=== PATIENT | male | born 1950 ===

== ENCOUNTER 2021-01-11 08:48 | Outpatient (REF) | payer OTHER, SELFPAY ==
--- NOTE | ~2021-01-11 | US_ITS ---
EXAMINATION: US RETROPERITONEAL LIMITED (AORTA) CLINICAL INFORMATION: Abdominal aorta aneurysm followup, without rupture. COMPARISON: Abdominal aorta ultrasound dated 01/20/2019 and 01/20/2018. TECHNIQUE: Grayscale, color Doppler and spectral Doppler evaluation of the abdominal aorta. FINDINGS: The aorta is normal. The measurements of the aorta in maximum AP and transverse dimensions respectively are as follows: PROXIMAL: 3.1 x 3.1 cm. MID: 2.3 x 2.4 cm. DISTAL: 5.4 x 5.3 cm. This is increased from 3.5 cm on January 2019 exam. It is difficult to define the posterior wall of the aneurysm particularly on transverse images and measurements accuracy is questioned. There is significant intraluminal thrombus which appears new. PSV: 97 The measurements of the common iliac arteries in maximum AP dimension are as follows: RIGHT COMMON ILIAC ARTERY: 1.2 cm. LEFT COMMON ILIAC ARTERY: 1.4 cm. US/US abdominal aortic aneurysm IMPRESSION: Distal abdominal aortic aneurysm increased in size from previous exam. It is difficult to define the posterior wall of the aneurysm and measurement accuracy is question. Aneurysm measures 5.4 x 5.3 cm in AP and transverse dimension compared to 3.5 x 3.5 cm on January 2019 exam. Findings will be communicated by the [employer] work flow painter apprentice Amanda Kim.
== END 2021-01-11 08:49 | disposition home or self-care (01) ==
LOC: HO.US 08:48
PROVIDERS: Visit Provider Surgery Vascular Surgery
DX: I71.4 Abdominal aortic aneurysm, without rupture (principal)
CPT/HCPCS: 76706

== ENCOUNTER → 2021-01-16 09:34 | Outpatient (BNVA) | payer OTHER, SELFPAY | PROVIDERS: PCP Internal Medicine; Visit Provider Surgery Vascular Surgery ==

== ENCOUNTER 2021-01-29 07:49 | Outpatient (REF) | payer OTHER, SELFPAY ==
--- NOTE | ~2021-01-29 | CT_ITS ---
EXAMINATION: CT ANGIOGRAM ABDOMEN AND PELVIS CLINICAL INFORMATION: This is a 70-year-old male with an abdominal aortic aneurysm. COMPARISON: Comparison is made to an ultrasound of the abdominal aorta which measures the abdominal aortic aneurysm measured 5.4 x 5.3 cm on 01/11/2021. TECHNIQUE: Multiple axial images were obtained through the abdomen and pelvis following the administration of 80 mL of Omnipaque 350 intravenous contrast. Images were reviewed on a dedicated 3-D workstation. This CT examination was performed using dose optimization techniques as appropriate, variously including the following: *Automated exposure control *Adjustment of mA and/or kV according to patient size (this includes techniques or standardized protocols for targeted exams where dose is matched to indication/reason for exam; i.e. extremities or head) *Use of iterative reconstruction technique DLP: 551 mGy-cm FINDINGS: Vascular: 1. Aorta: There is minimal calcified and noncalcified atherosclerotic plaque in the infrarenal aorta which measures 2.2 x 2.5 cm. There is an infrarenal abdominal aortic aneurysm which measures 3.5 x 3.5 cm. The distal abdominal aorta measures 2.3 x 2.4 cm. 2. Mesenteric Arteries: The celiac axis, superior mesenteric artery and inferior mesenteric artery opacify normally with contrast. No evidence of high-grade significant stenosis, aneurysm, or dissection. 3. Renal Arteries: There are 2 left renal arteries. There is a single right renal artery. There is scattered atherosclerotic plaque with 30% narrowing within the renal arteries bilaterally. 4. Right Lower Extremity: The right common iliac artery measures 1.3 cm. 5. There is scattered calcified and noncalcified atherosclerotic disease throughout the iliac arteries without evidence of high-grade stenosis. 5. Left Lower Extremity: The left common iliac artery measures 1.5 cm. 5. There is scattered calcified and noncalcified atherosclerotic disease throughout the iliac arteries without evidence of high-grade stenosis. Placed Nonvascular: LUNG BASES: Mild cystic changes noted in the right lower lobe. This may represent mild emphysematous change. MEDIASTINUM: The heart is normal in size. No pericardial effusion. No mediastinal or hilar lymphadenopathy. Visualized thyroid appears normal. The esophagus is unremarkable. LIVER, GALLBLADDER, AND BILIARY TREE: There is a 1.6 cm low-density mass within segment 4 of the liver. There is a 0.6 cm low-density mass within segment 8 of the liver. There is a 1 cm low-density mass within segment 8 of the liver. This is high within the liver near the junction with the inferior vena cava. These lesions are indeterminate on CT criteria. I recommend ultrasound evaluation of the liver to confirm that these are cysts versus solid lesions. There is no intrahepatic biliary duct dilatation. The gallbladder is unremarkable with no evidence of radiopaque gallstones, gallbladder wall thickening, or obvious pericholecystic inflammatory changes. PANCREAS: There is no pancreatic duct dilatation. There is a question of a low density 1 cm mass in the anterior body of the pancreas. This is best seen on series #5, image 23 or series #6, image 189. Further evaluation with ultrasound or EUS is recommended. SPLEEN: Normal size. No focal lesion. There is a 1 cm splenule medial to the spleen. ADRENAL GLANDS: The right adrenal gland appears within normal limits. There is mild thickening without nodularity to the lateral limb of the left adrenal gland. This is nonspecific. Clinical correlation is recommended. KIDNEYS AND URETERS: The kidneys are normal in size, shape, and attenuation. No hydronephrosis, hydroureter, or calculi. GASTROINTESTINAL TRACT: There is a nonobstructive bowel gas pattern present. The appendix appears normal. There is diverticulosis without evidence of diverticulitis. There is minimal stranding within the mesenteric fat medial to the left colon. This is nonspecific. If there are no acute findings this may represent previous inflammation. ABDOMINAL WALL: There is a fat-containing umbilical hernia present. LYMPHATIC STRUCTURES: No lymphadenopathy. The aorta is normal in caliber. BLADDER: The urinary bladder is distended without wall thickening or bladder calculi. PELVIC VISCERA: Diffuse coarse consultation is seen within the prostate gland. The gland does not appear to be enlarged. OSSEOUS STRUCTURES/SOFT TISSUES: There is anterolisthesis of L5 over S1. Degenerative disc disease with associated bony changes are noted at L5-S1. Osteoarthritic changes are noted at L4-5 and L5-S1. CT/CT angio abdomen pelvis IMPRESSION: 1. There is a question of a low density 1 cm mass in the anterior body of the pancreas. This is best seen on series #5, image 23 or series #6, image 189. Further evaluation with ultrasound or EUS is recommended. 2. There are multiple low-density masses within the liver which are indeterminate. Ultrasound evaluation of the liver is recommended. 3. There is an infrarenal abdominal aortic aneurysm with a maximum diameter of 3.5 x 3.5 cm.
[2021-01-29 09:19] LABS: Blood Urea Nitrogen 16 mg/dL (9-16); Estimated Glomerular Filt Rate > 60
[2021-01-29] MEDS: iohexoL 350 MG/ML 100 ML INFUS..BTL 80 ML IV (10:05)
== END 2021-01-29 07:50 | disposition home or self-care (01) ==
LOC: HO.CT 07:49
PROVIDERS: Visit Provider Surgery Vascular Surgery
DX: I71.4 Abdominal aortic aneurysm, without rupture (principal)
CPT/HCPCS: 36415; 74174; 82565; 84520; Q9967

== ENCOUNTER → 2021-01-30 09:06 | Outpatient (BNVA) | payer OTHER, SELFPAY | PROVIDERS: PCP Internal Medicine; Visit Provider Surgery Vascular Surgery ==

== ENCOUNTER 2022-02-19 15:24 | Outpatient (REF) | payer OTHER, SELFPAY ==
--- NOTE | ~2022-02-19 | US_ITS ---
EXAMINATION: US RETROPERITONEAL LIMITED (AORTA) CLINICAL INFORMATION: Abdominal aortic aneurysm. COMPARISON: CT angiogram abdomen 01/29/2021 TECHNIQUE: [place]-scale, color Doppler and spectral Doppler evaluation of the abdominal aorta. FINDINGS: The measurements of the aorta in maximum AP and transverse dimensions respectively are as follows: Proximal: 3.0 x 2.8 cm. Mid: 2.3 x 3.1 cm. Distal: 2.4 x 3.1 cm. PSV: 89 cm/s. There is a cine loop of the infrarenal aorta in the transverse plane which best approximates comparison with the CTA. In this imaging plane, the aneurysm measures 4.1 x 3.4 cm (with some limitation due to mural calcium). This is likely not significantly changed when compared to 01/29/2021 when it measures 3.9 x 3.6 cm by my measurements. The measurements of the common iliac arteries in maximum AP and TRV dimensions are as follows: Right Common Iliac Artery: 1.3 x 1.5 cm. Left Common Iliac Artery: 1.5 x 1.0 cm. US/US abdominal aortic aneurysm IMPRESSION: Stable to slightly increased infrarenal abdominal aortic aneurysm measuring 4.1 x 3.4 cm compared to 3.9 x 3.6 cm.
== END 2022-02-19 15:25 | disposition home or self-care (01) ==
LOC: HO.HMGCX 15:24
PROVIDERS: PCP Internal Medicine; Visit Provider Surgery Vascular Surgery
DX: I71.4 Abdominal aortic aneurysm, without rupture (principal)
CPT/HCPCS: 76706

== ENCOUNTER 2023-02-20 09:52 | Outpatient (REF) | payer OTHER, SELFPAY | END 2023-02-20 09:53 | disposition home or self-care (01) | LOC: HO.HMGCX 09:52 | PROVIDERS: PCP Internal Medicine; Visit Provider Surgery Vascular Surgery | DX: I71.40 Abdominal aortic aneurysm, without rupture, unspecified (principal) | CPT/HCPCS: 76706 ==

== ENCOUNTER 2023-04-17 09:11 | Outpatient (AMB) | payer OTHER, SELFPAY ==
--- NOTE | 2023-04-17 09:10 | MHC.OFFVIS ---
Intake Vital Signs 04/17/23 09:12 Height 5 ft 9 in Weight 188 lb BMI 27.8 BP 126/80 Blood Pressure Location Rt brachial Position Sitting Pulse 66 Pulse Source Pulse Oximeter Pulse Oximetry (%) 96 Oxygen Delivery Method Room Air Intake Visit Reasons: 1 year follow up AAA US 7/6 Intake Note: Pt presents to the office today for a 1 year follow up for AAA US 7/6. Pt states he feels good. Pt states he wishes he had more energy. He currently started ozempic a few months ago for weight loss. Allergies No Known Allergies Allergy (Verified 04/17/23 09:14) HPI 1 year follow up AAA US 7/6 HPI Details Very pleasant 72-year-old gentleman presents for follow-up regarding abdominal aortic aneurysm. In general he is doing extremely well. He has had weight loss of a nearly 30 lb due to diet and exercise. In addition he is on Ozempic. He is being maintained on a statin as well. He now presents for routine surveillance follow-up of his aneurysm. [facility] Medical History Cyst in hand Hypercholesteremia Hypertension Melanoma Surgical History Total knee replacement status (~10/01/18) Social History Patient Tobacco Use Status: Former Tobacco user Quit Date: 2008 Tobacco use type: Cigarette Cigarette Packs Per Day: 2 Years Smoked: 40 Review of Systems Const All systems reviewed & are unremarkable except as noted in HPI and below Reports no additional complaints ENT Reports Normal hearing present Card Denies chest pain, Denies chest pain at rest, Denies chest pain with activity and Denies pedal edema Resp Denies cough GI Denies abdominal pain Musc Denies abnormal gait, Denies muscle cramps and Denies radiating pain into limb Skin/Breast Denies skin ulcer and Denies wounds Neuro Reports Normal hearing present and Denies abnormal gait Psych Reports no additional complaints Physical Exam Vital Signs: Last Vital Signs Pulse 66 04/17/23 09:12 BP 126/80 04/17/23 09:12 Pulse Ox 96 04/17/23 09:12 Oxygen Delivery Method Room Air 04/17/23 09:12 BMI result Body Mass Index 27.8 Const General: cooperative, healthy appearing and comfortable Orientation/consciousness: oriented to person, oriented to place and oriented to time HEENT Head: Yes normal to inspection Neck Neck: Yes normal visual inspection Carotids: no bruits Chest Chest palpation & inspection: normal inspection of the chest Resp Effort & Inspection: normal respiratory effort and able to speak in complete sentences Auscultation: clear to auscultation bilaterally, no crackles, no rales, no rhonchi and no wheezes Cardio Rate: regular rate Rhythm: regular rhythm Heart sounds: S1 normal heart sound present and S2 normal heart sound present Bruits: no carotid bruits Peripheral pulses: Peripheral pulses 2+ throughout GI Inspection: Yes normal to inspection Skin Wounds: no wounds Hair: normal Neuro General: oriented to person, oriented to place and oriented to time Cranial nerves: Yes CN's II-XII intact bilaterally and Yes Normal hearing present Cognition (Neuro): normal cognition Motor exam (neuro): 5/5 motor strength present throughout Extrem Other: venous exam: No significant superficial varicosities or spider telangiectasias, minimal edema General: No clubbing, No cyanosis and No edema Psych Appearance: grossly normal Mental Status: mental status grossly normal Speech and movement: Normal speech and movement present Results Reviewed Results Reviewed: Testing dated 02/20/2023 demonstrates aortic aneurysm measuring 4.1 cm Assessment & Plan Assessment & Plan (1) AAA (abdominal aortic aneurysm) without rupture: Code(s): I71.4 - Abdominal aortic aneurysm, without rupture Plan: In short patient has radiologic evidence of a AAA on ultrasound of 4.1 cm. We have discussed the pathophysiology of aortic aneurysms and the risk of ruptures. We have discussed rupture risk based on size. In addition we have discussed conservative measures and risk factor modification for prevention of increase in size of the aneurysm. the patient is scheduled for surveillance follow-up in approximately 1 year. Thank you for allowing us to participate in the care of this patient Orders: Orders US abdominal aortic aneurysm 364 Days I71.4 - Abdominal aortic aneurysm, without rupture Coding Level of Care Code Est Pt Level 4 (91289) Diagnoses AAA (abdominal aortic aneurysm) without rupture I71.4
[2023-04-17 09:12] VITALS: BP 126/80; PULSE 66; O2SAT 96; BMI 27.8
== END 2023-04-17 10:15 | disposition home or self-care (01) ==
PROVIDERS: PCP Internal Medicine; Visit Provider Surgery Vascular Surgery
DX: I71.40 Abdominal aortic aneurysm, without rupture, unspecified (principal); Z79.85 Long-term (current) use of injectable non-insulin antidiabetic drugs
CPT/HCPCS: 99213

== ENCOUNTER → 2023-04-17 09:11 | Outpatient (BNVA) | payer OTHER, SELFPAY | PROVIDERS: PCP Internal Medicine; Visit Provider Surgery Vascular Surgery ==

== ENCOUNTER 2024-04-05 08:11 | Outpatient (REF) | payer OTHER, SELFPAY ==
--- NOTE | ~2024-04-05 | US_ITS ---
EXAMINATION: US ABDOMINAL AORTA CLINICAL INFORMATION: Abdominal aortic aneurysm COMPARISON: Abdominal aortic ultrasound the 2020 TECHNIQUE: Real-time ultrasound and Doppler techniques (integrating B-mode 2-D vascular images, Doppler spectral analysis and color flow Doppler imaging) were utilized to interrogate the abdominal aorta. FINDINGS: Proximal aorta: 3.3 cm AP; not visible in transverse dimension. Middle aorta: 2.5 cm AP; 2.8 cm transverse. Distal aorta: 4.9 cm AP; 3.6 cm transverse. Right common iliac artery: 1.5 x 1.6 cm. Left common iliac artery: 1.4 x 1.5 cm ADDITIONAL FINDINGS: None. US/US abdominal aortic aneurysm IMPRESSION: Mild interval increase in size of abdominal aortic aneurysm, now measuring 4.9 x 3.6 cm (previously 4.1 x 3.5 cm). Recommend further evaluation with CTA abdomen/pelvis and vascular surgery consult. Electronically signed by: Lakhwinder Marie DO 04/09/2024 03:14 PM EDT
== END 2024-04-05 08:12 | disposition home or self-care (01) ==
LOC: HO.HMGCX 08:11
PROVIDERS: PCP Internal Medicine; Visit Provider Surgery Vascular Surgery
DX: I71.40 Abdominal aortic aneurysm, without rupture, unspecified (principal)
CPT/HCPCS: 76706

== ENCOUNTER 2024-05-20 11:13 | Outpatient (AMB) | payer OTHER, SELFPAY ==
--- NOTE | 2024-05-20 11:18 | MHC.OFFVIS ---
Intake Visit Reasons: 1 yr follow up AAA US 04/05/24 Intake Note: Patient presents for 1 year follow up AAA. US done on 04/05/24. No complaints. Accompanied by: Self / Same As Patient Allergies No Known Allergies Allergy (Verified 05/20/24 11:19) HPI HPI 1 yr follow up AAA US 04/05/24: Details: Very pleasant 73-year-old gentleman presents for routine surveillance follow-up regarding his aortic aneurysm. He has been doing extremely well remains quite active. He has lost nearly 50 lb. He does report use of Ozempic. He is being maintained on a statin as well. He has undergone noninvasive aortic ultrasound. Now for routine follow-up. [facility] Medical History Hypercholesteremia Hypertension Melanoma Cyst in hand Surgical History Total knee replacement status (~10/01/18) Social History Patient Tobacco Use Status: Former Tobacco user Tobacco use type: Cigarette Cigarette Packs Per Day: 2 Years Smoked: 40 Review of Systems Const All systems reviewed & are unremarkable except as noted in HPI and below Reports no additional complaints ENT Reports Normal hearing present Card Denies chest pain, Denies chest pain at rest, Denies chest pain with activity and Denies pedal edema Resp Denies cough GI Denies abdominal pain Musc Denies abnormal gait, Denies muscle cramps and Denies radiating pain into limb Skin/Breast Denies skin ulcer and Denies wounds Neuro Reports Normal hearing present and Denies abnormal gait Psych Reports no additional complaints Physical Exam Const General: cooperative, healthy appearing and comfortable Orientation/consciousness: oriented to person, oriented to place and oriented to time HEENT Head: Yes normal to inspection Neck Neck: Yes normal visual inspection Carotids: no bruits Chest Chest palpation & inspection: normal inspection of the chest Resp Effort & Inspection: normal respiratory effort and able to speak in complete sentences Auscultation: clear to auscultation bilaterally, no crackles, no rales, no rhonchi and no wheezes Cardio Rate: regular rate Rhythm: regular rhythm Heart sounds: S1 normal heart sound present and S2 normal heart sound present Bruits: no carotid bruits Peripheral pulses: Peripheral pulses 2+ throughout GI Inspection: Yes normal to inspection Skin Wounds: no wounds Hair: normal Neuro General: oriented to person, oriented to place and oriented to time Cranial nerves: Yes CN's II-XII intact bilaterally and Yes Normal hearing present Cognition (Neuro): normal cognition Motor exam (neuro): 5/5 motor strength present throughout Extrem Other: venous exam: No significant superficial varicosities or spider telangiectasias, minimal edema General: No clubbing, No cyanosis and No edema Psych Appearance: grossly normal Mental Status: mental status grossly normal Speech and movement: Normal speech and movement present Results Reviewed Results Reviewed: Ultrasound dated 04/05/2024 demonstrates a 4.9 x 3.6 cm aneurysm. Written report and images were reviewed. I disagree with the interpretation and the 4.9 may be more of a transverse diameter. Assessment & Plan Assessment & Plan (1) AAA (abdominal aortic aneurysm) without rupture: Code(s): I71.4 - Abdominal aortic aneurysm, without rupture Category: Medical Qualifiers: Abdominal aorta location: infrarenal aorta Qualified Code(s): I71.43 - Infrarenal abdominal aortic aneurysm, without rupture Plan: In short patient has an abdominal aortic aneurysm. We did discuss routine risk factor modification. I would like to better elucidate the true size of this aneurysm. I have taken the liberty of ordering a noncontrast CT just for sizing measurements. He will follow up with us after testing. Thank you for allowing us to assist in his care. If there are any questions or concerns please do not hesitate to contact us. Please note a longitudinal relationship has been created with the patient and we have been following and surveillance this chronic condition. Orders: Orders CT abdomen pelvis wo IV con 1 Week I71.43 - Infrarenal abdominal aortic aneurysm, without rupture Coding Level of Care Code Est Pt Level 4 (38984) Complex EM visit Add On [id number] Diagnoses Infrarenal abdominal aortic aneurysm (AAA) without rupture I71.43 Abdominal aorta location: infrarenal aorta
== END 2024-05-20 11:44 | disposition home or self-care (01) ==
PROVIDERS: PCP Internal Medicine; Visit Provider Surgery Vascular Surgery
DX: I71.43 Infrarenal abdominal aortic aneurysm, without rupture (principal)
CPT/HCPCS: 99214

== ENCOUNTER → 2024-05-20 11:13 | Outpatient (BNVA) | payer OTHER, SELFPAY | PROVIDERS: PCP Internal Medicine; Visit Provider Surgery Vascular Surgery ==

== ENCOUNTER 2024-07-06 13:07 | Outpatient (AMB) | payer OTHER, SELFPAY ==
--- NOTE | 2024-07-06 13:13 | MHC.OFFVIS ---
Vital Signs 07/06/24 13:14 Height 5 ft 7.5 in Weight 184 lb BMI 28.4 Intake Visit Reasons: follow up s/p AAA US 06/24/24 Intake Note: 1 mo follow up CTA ABD/pelvis 06/04/24 for AAA. Was done at [facility] due to other health issues Accompanied by: Self / Same As Patient Allergies No Known Allergies Allergy (Verified 07/06/24 13:16) HPI HPI follow up s/p AAA US 06/24/24: Details: Very pleasant 73-year-old gentleman presents for follow-up regarding abdominal aortic aneurysm. He actually in the interim since his last visit he had undergone a CT scan of chest abdomen and pelvis [facility] for kidney stones. He reports he is doing much better from that. He is now for surveillance follow-up regarding his aortic aneurysm. Of note he remains quite active and has lost 50 lb on Ozempic. He now presents for routine follow-up. Also of note he quit smoking around 2007 [facility] Medical History Hypercholesteremia Hypertension Melanoma Cyst in hand Surgical History Total knee replacement status (~10/01/18) Social History Patient Tobacco Use Status: Former Tobacco user Tobacco use type: Cigarette Cigarette Packs Per Day: 2 Years Smoked: 40 Review of Systems Const All systems reviewed & are unremarkable except as noted in HPI and below Reports no additional complaints ENT Reports Normal hearing present Card Denies chest pain, Denies chest pain at rest, Denies chest pain with activity and Denies pedal edema Resp Denies cough GI Denies abdominal pain Musc Denies abnormal gait, Denies muscle cramps and Denies radiating pain into limb Skin/Breast Denies skin ulcer and Denies wounds Neuro Reports Normal hearing present and Denies abnormal gait Psych Reports no additional complaints Physical Exam Vital Signs: BMI result Body Mass Index 28.4 Const General: cooperative, healthy appearing and comfortable Orientation/consciousness: oriented to person, oriented to place and oriented to time HEENT Head: Yes normal to inspection Neck Neck: Yes normal visual inspection Carotids: no bruits Chest Chest palpation & inspection: normal inspection of the chest Resp Effort & Inspection: normal respiratory effort and able to speak in complete sentences Auscultation: clear to auscultation bilaterally, no crackles, no rales, no rhonchi and no wheezes Cardio Rate: regular rate Rhythm: regular rhythm Heart sounds: S1 normal heart sound present and S2 normal heart sound present Bruits: no carotid bruits Peripheral pulses: Peripheral pulses 2+ throughout GI Inspection: Yes normal to inspection Skin Wounds: no wounds Hair: normal Neuro General: oriented to person, oriented to place and oriented to time Cranial nerves: Yes CN's II-XII intact bilaterally and Yes Normal hearing present Cognition (Neuro): normal cognition Motor exam (neuro): 5/5 motor strength present throughout Extrem Other: venous exam: No significant superficial varicosities or spider telangiectasias, minimal edema General: No clubbing, No cyanosis and No edema Psych Appearance: grossly normal Mental Status: mental status grossly normal Speech and movement: Normal speech and movement present Results Reviewed Results Reviewed: CT scan report from [facility] demonstrates aortic aneurysm of 4.1 cm. This is an AP dimension. This was from 06/04/2024 written report only. Assessment & Plan Assessment & Plan (1) AAA (abdominal aortic aneurysm) without rupture: Code(s): I71.4 - Abdominal aortic aneurysm, without rupture Category: Medical Qualifiers: Abdominal aorta location: infrarenal aorta Qualified Code(s): I71.43 - Infrarenal abdominal aortic aneurysm, without rupture Plan: In short patient has radiologic evidence of a AAA on 4.[address] scan. We are in the process of getting the CD4 my review. We have discussed the pathophysiology of aortic aneurysms and the risk of ruptures. We have discussed rupture risk based on size. In addition we have discussed conservative measures and risk factor modification for prevention of increase in size of the aneurysm. the patient is scheduled for surveillance follow-up in approximately 6 months. Thank you for allowing us to participate in the care of this patient Orders: Orders US abdominal aortic aneurysm 6 Months I71.43 - Infrarenal abdominal aortic aneurysm, without rupture Coding Level of Care Code Est Pt Level 4 (07436) Diagnoses Infrarenal abdominal aortic aneurysm (AAA) without rupture I71.43 Abdominal aorta location: infrarenal aorta
[2024-07-06 13:14] VITALS: BMI 28.4
== END 2024-07-06 14:31 | disposition home or self-care (01) ==
PROVIDERS: PCP Internal Medicine; Visit Provider Surgery Vascular Surgery
DX: I71.43 Infrarenal abdominal aortic aneurysm, without rupture (principal)
CPT/HCPCS: 99214

== ENCOUNTER → 2024-07-06 13:07 | Outpatient (BNVA) | payer OTHER, SELFPAY | PROVIDERS: PCP Internal Medicine; Visit Provider Surgery Vascular Surgery ==